=== PATIENT | male | born 1950 | race Caucasian/White ===

== ENCOUNTER → 2016-08-22 | Outpatient (CLI) | payer OTHER ==
[~2016-08-22] MED LIST: ACYC-114 PO; AMLO5TAB2 PO; AMLO5TAB4 PO; BORT3.5V SQ; CHOL100015 PO; CYCL50TA PO; DEXA2TAB PO; DIAZ5TAB PO; DOCU50CA6 PO; FURO-93 PO; FURO80TA3 PO; HYDR4TAB16 PO; LENA20CA PO; LORA1TAB PO; MAGN400O4 PO; METO200T3 PO; MORP15TA PO; MORP30TA81 PO; MORP60TA22 PO; MORP60TA34 PO; ONDA4TAB7 PO; OXYC5CAP4 PO; POLY17PO5 PO; PRED20TA PO; PROC10TA78 PO; SERT100T5 PO; SULF1TAB3 PO; ZOLE4VIA IV; ZOLP12.54 PO
== END | disposition home or self-care (01) ==
LOC: PETCFH 07:16
PROVIDERS: ATTEND Internal Medicine Hematology & Oncology
DX: C90.00 Multiple myeloma not having achieved remission (principal); M85.80 Other specified disorders of bone density and structure, unspecified site
CPT/HCPCS: 78815; A9552

== ENCOUNTER → 2016-08-22 | Outpatient (CLI) | payer OTHER | END | disposition home or self-care (01) | LOC: CFH 07:23 | PROVIDERS: ATTEND Internal Medicine Hematology & Oncology | DX: C90.00 Multiple myeloma not having achieved remission (principal); M50.321 Other cervical disc degeneration at C4-C5 level; M50.221 Other cervical disc displacement at C4-C5 level; M48.02 Spinal stenosis, cervical region; Z98.890 Other specified postprocedural states; S32.018A Other fracture of first lumbar vertebra, initial encounter for closed fracture; S32.038A Other fracture of third lumbar vertebra, initial encounter for closed fracture; S22.058A Other fracture of T5-T6 vertebra, initial encounter for closed fracture; S22.078A Other fracture of T9-T10 vertebra, initial encounter for closed fracture; X58.XXXA Exposure to other specified factors, initial encounter; Y93.89 Activity, other specified; Y92.89 Other specified places as the place of occurrence of the external cause; Y99.8 Other external cause status | CPT/HCPCS: 72141; 72146; 72148; 82565 ==

== ENCOUNTER → 2017-01-23 | Outpatient (CLI) | payer OTHER ==
[~2017-01-23] MED LIST changes: -HYDR4TAB16 PO; +HYDR4TAB48 PO; -MAGN400O4 PO; +MAGN400O7 PO; +OXYC5CAP2 PO; -OXYC5CAP4 PO; +SULF-169 PO; -SULF1TAB3 PO
== END | disposition home or self-care (01) ==
LOC: CFH 08:48
PROVIDERS: ATTEND Internal Medicine Hematology & Oncology
DX: I34.0 Nonrheumatic mitral (valve) insufficiency (principal); M87.822 Other osteonecrosis, left humerus; M87.821 Other osteonecrosis, right humerus; C90.00 Multiple myeloma not having achieved remission
CPT/HCPCS: 77074; 93306

== ENCOUNTER → 2017-01-26 | Outpatient (CLI) | payer OTHER | END | disposition home or self-care (01) | LOC: CARD 12:08 | PROVIDERS: ATTEND Internal Medicine Hematology & Oncology | DX: C90.00 Multiple myeloma not having achieved remission (principal) | CPT/HCPCS: 94060; 94726; 94729 ==

== ENCOUNTER → 2017-01-26 | Outpatient (CLI) | payer OTHER | END | disposition home or self-care (01) | LOC: PETCFH 07:47 | PROVIDERS: ATTEND Internal Medicine Hematology & Oncology | DX: C90.00 Multiple myeloma not having achieved remission (principal); M19.019 Primary osteoarthritis, unspecified shoulder; M89.58 Osteolysis, other site | CPT/HCPCS: 78815; A9552 ==

== ENCOUNTER 2017-01-29 08:23 | Day surgery (SDC) | payer OTHER ==
[~2017-01-29] VITALS: Ht 165.1 cm; Wt 121.7 kg
[2017-01-29 09:01] VITALS: BP 133/95
[2017-01-29] MEDS ORDERED: NALOXONE 1 MG/ML, 2ML ONE (09:20)
[2017-01-29] MEDS ORDERED: MIDAZOLAM 1 MG/ML, 5ML ONE (09:20)
[2017-01-29] MEDS ORDERED: LIDOCAINE 1%, 20ML ONE (09:20)
[2017-01-29] MEDS ORDERED: FLUMAZENIL 0.1 MG/1 ML, 5ML ONE (09:20)
[2017-01-29] MEDS ORDERED: FENTANYL PF 100 MCG/2ML ONE (09:20)
[2017-01-29] MEDS ORDERED: SODIUM CHLORIDE 0.9% 1,000 ML IV SCH (09:30)
[2017-01-29 09:34] LABS: HEMATOCRIT 41.2 % (39.2-51.8); HEMOGLOBIN 13.5 g/dL (13.7-18.0); WHITE BLOOD COUNT 5.4 x10^3/uL (3.4-10)
== END 2017-01-29 11:40 | disposition home or self-care (01) ==
LOC: OUT 08:23
PROVIDERS: ATTEND Internal Medicine Hematology & Oncology
DX: C90.00 Multiple myeloma not having achieved remission (principal); I10 Essential (primary) hypertension
CPT/HCPCS: 36415; 38221; 77012; 85025; 85097; 88237; 88264; 88280; 88305; 88311; 88313; 99156; G0364; J2250; J3010; J3490; 88341; 88342; 99157; G0461; J2310

== ENCOUNTER 2017-12-14 07:25 | Day surgery (SDC) | payer OTHER ==
[~2017-12-14] VITALS: Ht 170.2 cm; Wt 109.0 kg
[~2017-12-14 07:25] MED LIST changes: -METO200T3 PO; +METO200T47 PO
[2017-12-14 07:57] VITALS: BP 116/82
[2017-12-14 08:18] LABS: BASOPHILS # (AUTO) 0.05 x10^3/uL (0-0.1); BASOPHILS % (AUTO) 1 % (0-1); EOSINOPHILS # (AUTO) 0.23 x10^3/uL (0-0.4); EOSINOPHILS % (AUTO) 6 % (1-7); LYMPHOCYTES # (AUTO) 1.33 x10^3/uL (1-3.4); LYMPHOCYTES % (AUTO) 36 % (22-44); MD NO; MEAN CORPUSCULAR HEMOGLOBIN 32.2 pg (27.5-34.5); MEAN CORPUSCULAR HGB CONC 33.5 g/dL (33.2-36.2); MEAN CORPUSCULAR VOLUME 96.2 fL (81-97); MEAN PLATELET VOLUME 7.8 fL (7.4-10.4); MONOCYTES # (AUTO) 0.38 x10^3/uL (0.2-0.8); MONOCYTES % (AUTO) 10 % (2-9); NEUTROPHILS # (AUTO) 1.73 x10^3/uL (1.8-6.8); NEUTROPHILS % (AUTO) 47 % (42-75); PLATELET COUNT 180 x10^3/uL (130-400); RED BLOOD COUNT 4.39 x10^6/uL (4.38-5.82); RED CELL DISTRIBUTION WIDTH 14.9 % (9.4-14.8)
[2017-12-14] MEDS ORDERED: LIDOCAINE-MPF 2% ,5ML ONE (08:47)
[2017-12-14] MEDS ORDERED: FENTANYL PF 100 MCG/2ML ONE (09:01)
[2017-12-14] MEDS ORDERED: MIDAZOLAM 1 MG/ML, 5ML ONE (09:01)
[2017-12-14] MEDS ORDERED: FLUMAZENIL 0.1 MG/1 ML, 5ML ONE (09:02)
[2017-12-14] MEDS ORDERED: NALOXONE 1 MG/ML, 2ML ONE (09:02)
== END 2017-12-14 11:20 ==
LOC: OUT 07:25
PROVIDERS: ATTEND Internal Medicine Hematology & Oncology
DX: C90.00 Multiple myeloma not having achieved remission (principal); I10 Essential (primary) hypertension
CPT/HCPCS: 36415; 38222; 77012; 85025; 85060; 85097; 88237; 88264; 88280; 88305; 88311; 88313; 99156; J2250; J3010; J3490; 99157; J2310

== ENCOUNTER → 2017-12-16 | Outpatient (CLI) | payer OTHER | END | disposition home or self-care (01) | LOC: CVU 12:07 | PROVIDERS: ATTEND Internal Medicine Hematology & Oncology | DX: I77.810 Thoracic aortic ectasia (principal); C90.00 Multiple myeloma not having achieved remission; I10 Essential (primary) hypertension; S22.31XD Fracture of one rib, right side, subsequent encounter for fracture with routine healing; X58.XXXD Exposure to other specified factors, subsequent encounter | CPT/HCPCS: 71046; 93005; 93306; 94010; 94726; 94729 ==

== ENCOUNTER → 2017-12-23 | Outpatient (CLI) | payer OTHER | END | disposition home or self-care (01) | LOC: PETCFH 09:41 | PROVIDERS: ATTEND Internal Medicine Hematology & Oncology | DX: C90.00 Multiple myeloma not having achieved remission (principal); M89.58 Osteolysis, other site | CPT/HCPCS: 78815; A9552; 93005 ==

== ENCOUNTER 2018-08-18 09:07 | Outpatient (CLI) | payer OTHER ==
[~2018-08-18 09:07] MED LIST changes: +AMLO-150 PO; -AMLO5TAB2 PO; +SERT100T32 PO; -SERT100T5 PO
== END 2018-08-18 23:59 | disposition home or self-care (01) ==
LOC: CFH 09:07
PROVIDERS: ATTEND Internal Medicine Hematology & Oncology
DX: C90.00 Multiple myeloma not having achieved remission (principal); M89.58 Osteolysis, other site; M81.0 Age-related osteoporosis without current pathological fracture
CPT/HCPCS: 77080; 78815; A9552